=== PATIENT | male | born 1975 | race Caucasian/White ===

== ENCOUNTER 2017-07-28 08:04 | Emergency (ER) | payer OTHER ==
--- NOTE | 2017-07-28 08:33 | C.PDOC ---
History Of Present Illness 42 y/o male presents to ED with c/o body aches and fever for 4 days. Patient states he was seen at an urgent care center for similar symptoms on Wednesday (2 days ago) and was given a Z-pack. Patient notes that today, he began to notice occasional blood streaked sputum on cough. He notes he has been alternating Tylenol and Motrin for fever. Patient denies nausea, vomiting, diarrhea, abdominal pain, chest pain, SOB, dysuria/hematuria. Time Seen by Provider: 07/28/17 08:15 Chief Complaint (Nursing): Fever History Per: Patient History/Exam Limitations: no limitations Onset/Duration Of Symptoms: Days Current Symptoms Are (Timing): Still Present Sick Contacts (Context): None Associated Symptoms: Fever, Cough, Myalgias. denies: Neck Pain, Vomiting, Diarrhea Ear Symptoms: Bilateral: None Severity: Moderate Past Medical History Reviewed: Historical Data, Nursing Documentation, Vital Signs Vital Signs: Last Vital Signs Temp 98.2 F 07/28/17 10:27 Pulse 92 H 07/28/17 10:27 Resp 16 07/28/17 10:27 BP 112/76 07/28/17 10:27 Pulse Ox 96 07/28/17 12:37 - Medical History PMH: No Chronic Diseases Family History: States: No Known Family Hx - Social History Hx Alcohol Use: Yes Hx Substance Use: No Review Of Systems Except As Marked, All Systems Reviewed And Found Negative. Constitutional: Positive for: Fever, Malaise. Negative for: Chills Cardiovascular: Negative for: Chest Pain Respiratory: Positive for: Cough. Negative for: Shortness of Breath, Wheezing Gastrointestinal: Negative for: Nausea, Vomiting, Abdominal Pain, Diarrhea Genitourinary: Negative for: Dysuria, Hematuria Skin: Negative for: Rash Neurological: Negative for: Headache, Dizziness Physical Exam - Physical Exam Appears: Well, Non-toxic, Other (in mild discomfort ) Skin: Normal Color, Warm, Dry, No Rash Head: Atraumatic Eye(s): bilateral: Normal Inspection Ear(s): Bilateral: Normal Nose: Normal Oral Mucosa: Moist Throat: Normal, No Erythema, No Exudate Neck: Normal ROM, Supple, Other (no meningismus) Cardiovascular: Rhythm Regular (tachycardic) Respiratory: Normal Breath Sounds, No Rales, No Rhonchi, No Wheezing Gastrointestinal/Abdominal: Normal Exam, Bowel Sounds, Soft, No Tenderness Back: Normal Inspection, No CVA Tenderness Extremity: Bilateral: Normal Color And Temperature Neurological/Psych: Oriented x3 ED Course And Treatment - Laboratory Results Result Diagrams: 07/28/17 09:46 07/28/17 09:46 O2 Sat by Pulse Oximetry: 96 (RA) Pulse Ox Interpretation: Normal - Radiology CXR: Interpreted by Me, Viewed By Me CXR Interpretation: Yes: No Acute Disease. No: Infiltrates Progress Note: Bloodwork, CxR, influenza swab ordered and reviewed. Patient given IV NS bolus, IV toradol. Reevaluation Time: 10:20 Reassessment Condition: Improved (On reassessment, patient is resting comfortably and states he is feeling better. Fever had dropped appropriately, and vitals are improved. CXR, influenza swab, blood work unremarkable. Patient reassurred that symptoms are likely viral, and that treatment is supportive. Patient instructed to drink plenty of fluids and alternate motrin/ tylenol for fever/pain. He understands he should return to ED if symptoms worsen.) Disposition Counseled Patient/Family Regarding: Studies Performed, Diagnosis, Need For Followup, Rx Given - Disposition Referrals: at [facility] [Outside] Disposition: HOME/ ROUTINE Disposition Time: 10:20 Condition: STABLE Additional Instructions: FOLLOW UP WITH YOUR DOCTOR/CLINIC IN 1-2 DAYS ALTERNATE TYLENOL AND IBUPROFEN EVERY 4 HOURS DRINK PLENTY OF FLUIDS AND GET REST RETURN TO ER IF SYMPTOMS WORSEN Instructions: Viral Syndrome (ED) Forms: [facility] (Montenegrin) Print Language: MALTESE - POA Present On Arrival: None - Clinical Impression Clinical Impression: Viral syndrome - Scribe Statement The provider has reviewed the documentation as recorded by the Shivam Licea Provider Attestation: All medical record entries made by the Shivam were at my direction and personally dictated by me. I have reviewed the chart and agree that the record accurately reflects my personal performance of the history, physical exam, medical decision making, and the department course for this patient. I have also personally directed, reviewed, and agree with the discharge instructions and disposition.
[2017-07-28] MEDS ORDERED: Naproxen 550 mg Tab PO STA (08:34)
[2017-07-28] MEDS ORDERED: Naproxen 550 mg Tab PO ONE (08:39)
[2017-07-28] MEDS ORDERED: Sodium Chloride 0.9% 1,000 ML IV ONE (09:24)
[2017-07-28 10:07] LABS: BASO # 0.1 K/uL (0.0-0.2); BASO % 0.6 % (0.0-2.0); EOS # 0.1 K/uL (0.0-0.7); EOS % 0.6 % (0.0-4.0); HEMATOCRIT 38.2 % (35.0-51.0); LYMPH # 1.3 K/uL (1.0-4.3); LYMPH % 13.2 % (20.0-40.0); MEAN CELL VOLUME 90.1 fL (80.0-94.0); MEAN CORPUSCULAR HGB CONC 34.4 g/dL (33.0-37.0); MONO # 0.7 K/uL (0.0-0.8); MONO % 7.4 % (0.0-10.0); NRBC % 0.1 % (0.0-2.0); RED CELL DISTRIBUTION WIDTH 12.3 % (11.5-14.5); WHITE BLOOD COUNT 9.5 K/uL (4.8-10.8)
[2017-07-28 10:08] LABS: CHLORIDE 100 mmol/L (98-107); POTASSIUM 3.3 mmol/L (3.6-5.2); SODIUM 135 mmol/L (132-148)
[2017-07-28 10:11] LABS: BLOOD UREA NITROGEN 12 mg/dL (9-20); CALCIUM 8.5 mg/dl (8.6-10.4); CARBON DIOXIDE 23 mmol/L (22-30); GFR AFRICAN-AMERICAN > 60; GLUCOSE,RANDOM 106 mg/dL (75-110)
[2017-07-28 10:28] VITALS: BP 112/76; PULSE 92; RESP 16; TEMP 98.2
[2017-07-28 12:37] VITALS: O2SAT 96
--- NOTE | 2017-07-28 13:53 | RAD ---
HISTORY: cough, fever COMPARISON: No prior. TECHNIQUE: Chest PA and lateral FINDINGS: LUNGS: No active pulmonary disease. PLEURA: No significant pleural effusion identified. No pneumothorax apparent. CARDIOVASCULAR: Normal. OSSEOUS STRUCTURES: No significant abnormalities. VISUALIZED UPPER ABDOMEN: Normal. OTHER FINDINGS: None. IMPRESSION: No active disease.
== END 2017-07-28 10:29 | disposition home or self-care (01) ==
LOC: C.ER 08:04
DX: B34.9 Viral infection, unspecified (principal)
CPT/HCPCS: 71020; 80048; 85025; 87804; 96361; 96374; 99284; J1885; J7040